=== PATIENT | male | born 1940 | race Caucasian/White ===

== ENCOUNTER 2017-08-22 09:45 | Outpatient (CLI) | payer MEDICARE, OTHER | END 2017-08-22 09:46 | disposition EMS.NT | LOC: EMS 09:45 | PROVIDERS: ATTEND Surgery | DX: Z03.89 Encounter for observation for other suspected diseases and conditions ruled out (principal); W06.XXXA Fall from bed, initial encounter; Y92.003 Bedroom of unspecified non-institutional (private) residence as the place of occurrence of the external cause ==